=== PATIENT | male | born 1990 | race Caucasian/White ===

== ENCOUNTER 2019-11-11 10:51 | Outpatient (CLI) | payer SELFPAY ==
--- NOTE | 2019-11-11 10:57 | XR_ITS ---
WS: [id number] Left rib detail, 11/11/2019 Clinical Data: pain Comparison: None. Findings: No left rib fractures are seen. There is no left pneumothorax. No subcutaneous emphysema is present. XR/XR ribs LT 2V* [id number] Impression: Negative left rib detail.
== END 2019-11-11 10:52 | disposition home or self-care (01) ==
LOC: RAD 10:56
PROVIDERS: PCP Family Medicine; Visit Provider Nurse Practitioner
DX: R07.81 Pleurodynia (principal)
CPT/HCPCS: 71100